=== PATIENT | male | born 1940 | race Caucasian/White ===

== ENCOUNTER 2017-11-26 12:49 | Day surgery (SDC) | payer MEDICARE, OTHER ==
[2017-11-26] MEDS ORDERED: DEXAMETHASONE SOD PHOS PF 10 MG/ML SOL IJ ONE (13:17)
[2017-11-26] MEDS ORDERED: BUPIVACAINE HCL 0.25% MPF 10 ML SOL INFIL ONE (13:17)
[2017-11-26 14:08] VITALS: BP 122/88; PULSE 84; RESP 20; TEMP 98.2; O2SAT 94
== END 2017-11-26 14:20 | disposition home or self-care (01) | DRG 552 ==
LOC: SURG 12:49
PROVIDERS: ATTEND Nurse Anesthetist, Certified Registered
DX: M54.5 Low back pain (principal); M54.16 Radiculopathy, lumbar region
CPT/HCPCS: J1100

== ENCOUNTER 2018-09-15 07:43 | Day surgery (SDC) | payer MEDICARE, OTHER ==
[~2018-09-15 07:43] MED LIST: LIDOCAINE HCL 1% MPF 30 SOL ONE; PROPOFOL 500 MG/50 ML EMU IV ONE
[2018-09-15 10:01] VITALS: TEMP 97
[2018-09-15 10:08] VITALS: RESP 20
[2018-09-15 10:16] VITALS: BP 139/88; PULSE 77; O2SAT 95
== END 2018-09-15 10:22 | disposition home or self-care (01) | DRG 951 ==
LOC: SURG 07:43
PROVIDERS: ATTEND Internal Medicine Gastroenterology
DX: Z12.11 Encounter for screening for malignant neoplasm of colon (principal); Z86.010 Personal history of colon polyps; K64.4 Residual hemorrhoidal skin tags; D12.5 Benign neoplasm of sigmoid colon; D12.3 Benign neoplasm of transverse colon; K64.8 Other hemorrhoids
CPT/HCPCS: J2001; J2704